=== PATIENT | male | born 1945 | race Caucasian/White ===

== ENCOUNTER → 2019-11-22 08:51 | Outpatient (CLI) | payer OTHER, SELFPAY ==
--- NOTE | 2019-11-22 | DI.ECHO.S_ITS ---
[facility] +---------+ : : [address] : [address] [address] : : : : [id number] : : : : Phone: [phone]---------+ Echocardiogram Report + + :Name: BRICE MORALES Study Date: 11/22/2019 Height: 68 in : :[facility] Weight: 180 lb : : Gender: Male BSA: 2.0 m2 : :: 1945 Age: 74 yrs BP: 142/86 mmHg: :Reason For Study: HEART CONDITION : :Ordering Physician: LEN, : :TERESA Performed By: Shahrzad Osborn : :Referring: TERESA HARRINGTON : + + Interpretation Summary The ejection fraction is estimated to be 60-65%. The ascending aorta is mildly enlarged. There is no significant valvular heart disease. Procedure: A two-dimensional transthoracic echocardiogram with color flow and Doppler was performed. The study quality was technically adequate. There is no prior echocardiogram noted for this patient. The patient was in sinus rhythm with heart rates between 62-67 bpm during the exam. Left Ventricle: The left ventricle is normal in size. Proximal septal thickening is noted. The ejection fraction is estimated to be 60-65%. Left ventricular wall motion is normal. Diastolic parameters suggest probable normal left ventricular diastolic function and normal filling pressures. Right Ventricle: The right ventricle is normal in size and function. Atria: The left atrial size is normal. Right atrial size is normal. There is no Doppler evidence for an interatrial shunt. Mitral Valve: There is mild mitral annular calcification. The mitral valve leaflets appear mildly thickened, but open well. There is trace mitral regurgitation. Aortic Valve: The aortic valve is slightly calcified. The aortic valve is trileaflet. The aortic valve opens well. There is no aortic valve stenosis. No aortic regurgitation is present. Tricuspid Valve: The tricuspid valve is not well visualized, but is grossly normal. Pulmonary artery pressures cannot be estimated because of the lack of a measurable TR jet velocity. There is trace tricuspid regurgitation. Pulmonic Valve: The pulmonic valve leaflets are thin and pliable; valve motion is normal. There is trace pulmonic regurgitation. Great Vessels: The aortic root is normal size. The ascending aorta is mildly enlarged. The inferior vena cava was not visualized. Pericardium/ Pleura There is no pericardial effusion. There is no pleural effusion. MMode/2D Measurements & Calculations LVIDd: 4.0 cm LVOT diam: 2.2 cm LVIDs: 3.0 cm Ao root diam: 3.3 cm FS: 25.5 % asc Aorta Diam: 3.8 cm EPSS: 0.90 cm Ao Arch Diam (Prox Trans): 2.9 cm IVSd: 1.3 cm LVPWd: 0.94 cm LV kearns. diameter/BSA (cm/m^2): 2.1 LV sys. diameter/BSA (cm/m^2): 1.5 LA A2 area: 17.0 cm2 RA long axis: 4.6 cm LA A4 area: 17.7 cm2 RA area: 14.1 cm2 LA length (vol): 5.5 cm RA vol: 36.9 ml LA vol: 46.5 ml RA : 18.9 ml/m2 LA vol index: 23.8 ml/m2 RVD1 (basal): 3.3 cm TAPSE: 1.7 cm Doppler Measurements & Calculations Ao V2 max: 199.8 cm/sec LVOT Max Alpesh: 133.6 cm/sec Ao V2 mean: 130.0 cm/sec LV V1 max P.1 mmHg Ao max P.0 mmHg LV V1 VTI: 27.0 cm Ao mean P.8 mmHg SHANICE(I,D): 2.5 cm2 Ao V2 VTI: 40.3 cm SHANICE(V,D): 2.5 cm2 sev ratio: 0.67 SHANICE indexed to BSA (cm^2/m^2): 1.3 MV E max alpesh: 76.2 cm/sec PA V2 max: 68.1 cm/sec MV A max alpesh: 82.4 cm/sec PA V2 mean: 39.5 cm/sec MV E/A: 0.92 PA mean P.79 mmHg Med Peak E' Alpesh: 5.0 cm/sec PA pr(Accel): 41.3 mmHg E/E' med: 15.2 Lat Peak E' Alpesh: 10.0 cm/sec E/E' lat: 7.6 E/e' average: 11.4 MV dec time: 0.27 sec SV(LVOT): 100.7 ml Reading Physician:11:43 AM
== END ==
PROVIDERS: Referring Provider Physician Assistant; Visit Provider Physician Assistant
DX: I51.9 Heart disease, unspecified (principal); I77.89 Other specified disorders of arteries and arterioles
CPT/HCPCS: 93306